=== PATIENT | male | born 1950 | race Caucasian/White ===

== ENCOUNTER → 2016-11-15 | Outpatient (CLI) | payer MEDICARE, BC ==
--- NOTE | 2016-11-15 13:13 | RADIOLOGY REPORT (SQ) ---
EXAM DESCRIPTION: KUB/ABDOMEN (SINGLE VIEW) COMPLETED DATE/TIME: 11/15/2016 9:17 am REASON FOR STUDY: CALCULUS OF KIDNEY WITH CALCULUS OF URETER COMPARISON: CT abdomen pelvis 04/06/2016, 01/02/2015 NUMBER OF VIEWS: One view. TECHNIQUE: Supine radiographic image of the abdomen acquired. LIMITATIONS: None. FINDINGS: BOWEL GAS PATTERN: Normal bowel gas pattern. No dilated loops. CALCIFICATIONS: Stable calcified pelvic phleboliths. 4 mm right lower pole intrarenal nonobstructive stone. 6 mm left lower pole intrarenal nonobstructive stone. SOFT TISSUES: No gross mass or suggestion of organomegaly. HARDWARE: None in the abdomen. BONES: No acute fracture. No worrisome bone lesions. OTHER: No other significant finding. IMPRESSION: Bilateral intrarenal nonobstructive stones TECHNICAL DOCUMENTATION: JOB ID: [id number] [employer]- All Rights Reserved
== END ==
LOC: RAD 08:53
PROVIDERS: ATTEND Urology
DX: N20.2 Calculus of kidney with calculus of ureter (principal)
CPT/HCPCS: 74000

== ENCOUNTER → 2016-11-22 | Outpatient (CLI) | payer MEDICARE, BC ==
--- NOTE | 2016-11-22 10:32 | RADIOLOGY REPORT (SQ) ---
EXAM DESCRIPTION: IVP W/WO TOMOGRAMS COMPLETED DATE/TIME: 11/22/2016 9:51 am REASON FOR STUDY: CALCULUS OF KIDNEY WITH CALCULUS OF URETER N20.2 CALCULUS OF KIDNEY WITH CALCULUS OF URETER COMPARISON: KUB 11/15/2016 CT abdomen pelvis without contrast 04/06/2016 NUMBER OF VIEWS: Technology Development Intern images, 7 additional views TECHNIQUE: A athletic scout view was obtained initially. 100 ml of Isovue 300. contrast was injected intrave nously. Subsequent timed images of the abdomen and pelvis were obtained. RENAL FUNCTION: Creatinine 0.8 LIMITATIONS: None. FINDINGS: Technology Development Intern film demonstrates stable calcific pelvic phleboliths. 3 to 4 mm calculus right lowe r pole kidney, unchanged from CT exam 04/06/2016. No definite distal ureteral or bladder stones. Post-injection, prompt symmetric nephropyelograms are present. There is mild cortical thinning along the lateral aspect right lower pole kidney, similar compared to CT exam 04/06/2016. No hydronephrosis or hydroureter. No gross urothelial abnormalities. Urinary bladder unremarkable. No significant postvoid residua. OTHER: No other significant finding. IMPRESSION: Intrarenal nonobstructive stone right lower pole kidney, 4 mm in size Calcified pelvic phleboliths. No hydronephrosis or hydroureter. No ureteral stones. No ureteral obstruction by IVP TECHNICAL DOCUMENTATION: JOB ID: [id number] [employer]- All Rights Reserved
== END ==
LOC: RAD 08:17
PROVIDERS: ATTEND Urology
DX: N20.2 Calculus of kidney with calculus of ureter (principal)
CPT/HCPCS: 74400; 82565

== ENCOUNTER → 2020-05-21 | Outpatient (CLI) | payer MEDICARE, BC ==
--- NOTE | 2020-05-21 11:25 | ER RDC ASSESSMENT REPORT ---
Intake - In the Last 14 days Have you traveled outside [place]?: No Have you been in close contact with someone CONFIRMED: Yes Worked in Healthcare?: No - Symptoms Subjective Fever([place] feverish): No Chills: No Muscule Aches: No Runny Nose: No Sore Throat: No Cough (New or worsening chronic cough): No Shortness of breath: No Nausea or Vomiting: No Headache: Yes Abdominal Pain: No Diarrhea(3 or more loose stools in last 24 hours): No - Do you have any of the following Chronic lung disease: Asthma or emphysema or COPD: No Cystic Fibrosis: No Diabetes: No High Blood Pressure: Yes Cardiovascular Disease: No Chronic Kidney Disease: No Chronic Liver Disease: No Chronic blood disorder like Sickle Cell Disease: No Weak immune system due to disease or medication: No Neurologic condition that limits movement: No Developmental delay - Moderate to Severe: No Morbid Obesity (>100 pounds over ideal weight): No - Objective Temperature: 98.0 F Pulse Rate: 66 Respiratory Rate: 16 Blood Pressure: 161/81 - did not take BP meds O2 Sat by Pulse Oximetry: 97 Objective: Given above, testing performed: Covid Disposition: Home; Selfcare General - General Stated Complaint: Congestion, MARCH Time Seen by Provider: 05/21/20 11:00 Mode of Arrival: Ambulatory Information source: Patient - HPI Notes: 70-year-old male presents to [facility] clinic for COVID-19 testing. Patient reports his did test positive for COVID-19 within the past week. Patient reports his only symptom is some congestion, which is not abnormal for him, and a headache. Patient states the headache started after he took some decongestant medicine for the congestion which increased his blood pressure; patient has underlying hypertension. He denies any fevers, chills, sore throat, cough, shortness of breath, myalgia, or GI upset. - Related Data Allergies/Adverse Reactions: morphine [Morphine] Allergy (Verified 04/06/16 15:52) Past Medical History - General Information source: Patient - Social History Smoking Status: Former Smoker Family History: Reviewed & Not Pertinent - Past Medical History Cardiac Medical History: Reports: Hx Hypercholesterolemia, Hx Hypertension Pulmonary Medical History: Reports: None EENT Medical History: Reports: None Neurological Medical History: Reports: None Endocrine Medical History: Reports: None Renal/ Medical History: Reports: None Malignancy Medical History: Reports None GI Medical History: Reports: None Musculoskeletal Medical History: Reports Hx Arthritis Skin Medical History: Reports None Psychiatric Medical History: Reports: None Traumatic Medical History: Reports: None Infectious Medical History: Reports: None Surgical Hx: Negative Past Surgical History: Reports: None Physical Exam - Vital signs Interpretation: Hypertensive Notes: did not take AM BP meds - General General appearance: Appears well, Alert In distress: None Notes: PHYSICAL EXAMINATION: GENERAL: Well-appearing and in no acute distress. HEAD: Atraumatic, normocephalic. EYES: sclera anicteric, conjunctiva are normal. ENT: nares patent. Moist mucous membranes. NECK: Normal range of motion, supple without lymphadenopathy. LUNGS: No increased work of breathing. Lung sounds CTAB and equal. No wheezes rales or rhonchi. HEART: Regular rate and rhythm without murmurs. ABDOMEN: Soft, nontender, normal bowel sounds, no guarding. EXTREMITIES: Normal range of motion, no pitting edema. No cyanosis. NEUROLOGICAL: A&O x 3. Normal speech. PSYCH: Normal mood, normal affect. SKIN: Warm, Dry, normal turgor, no rashes or lesions noted Patient Education/Counseling Counseling/Education: Patient presents with symptoms associated with possible Covid 19 infection. Patient does not have emergency worrying symptoms such as difficulty breathing, shortness of breath, chest pain, pressure, confusion or cyanosis. Patient appears suitable for discharge as vital signs are stable and patient is nontoxic in appearance. Good return precautions have been discussed with patient, patient verbalized understanding and is agreeable with discharge plan of care at this time. Guidance for worsening S/SX: As a person under investigation for Covid 19, the [place] department of Health and Human Services, division of public health advises you to adhere to the following guidance until your test results are reported to you. If your test result is positive, you will receive additional information from your provider and your local health department at that time. Remain at home until you are cleared by the health provider or public health authorities. Keep a log of visitors to your home, notify any visitors to your home of your isolation status. If you plan to move to a new address or leave the [facility], notify the local health department in your County. Call your doctor or seek care if you have an urgent medical need. Before seeking medical care, call ahead to get instructions from the provider before arriving at the medical office clinic or hospital. Notify them that you are being tested for the virus that causes Covid 19 so that arrangements can be made, as necessary, to prevent transmission to others in the healthcare setting. Next, notify the local health department in your county. If a medical emergency arises and you need to call 911, inform the first responders that you are being tested for the virus that causes Covid 19. Next, notify the local health department in your county. RDC Discharge - Discharge Clinical Impression: Encounter for screening for COVID-19 Condition: Good Disposition: Home; Selfcare
[2020-05-21 11:30] VITALS: BP 161/81
== END ==
LOC: RDC 10:55
PROVIDERS: ATTEND Registered Nurse
DX: Z20.822 Contact with and (suspected) exposure to COVID-19 (principal); R09.81 Nasal congestion; R51.9 Headache, unspecified; I10 Essential (primary) hypertension; E78.00 Pure hypercholesterolemia, unspecified; Z88.6 Allergy status to analgesic agent; Z87.891 Personal history of nicotine dependence
CPT/HCPCS: U0003; C9803; 87635; 99202; 99211